=== PATIENT | male | born 1955 | race Hispanic/Latino ===

== ENCOUNTER 2019-08-31 15:10 | Emergency (ER) | payer OTHER ==
--- OUTSIDE RECORDS SUMMARY | 2019-08-31 15:34 | XMS REPORT ---
:1955 Author Organization eClinicalWorks Care Team Providers Name Role Phone Annia Garcia Provider Role Unavailable Allergies, Adverse Reactions, Alerts Substance Reaction Event Type N.K.D.A. Info Not Available Non Drug Allergy Problems Problem Type Condition Code Onset Dates Condition Statu s Problem Memory problem R41.3 Active Problem Therapeutic drug monitoring Z51.81 Active Problem Hypertension, unspecified type I10 Active Assessment Acute bilateral low back pain M54.5 Active without sciatica Problem Forgetfulness R68.89 Active Problem Dietary surveillance and counseling Z71.3 Active Problem Depression screening Z13.31 Active Problem Acute bilateral low back pain M54.5 Active without sciatica Problem Hyperglycemia R73.9 Active Problem Polyarthralgia M25.50 Active Problem Hypercholesterolemia E78.00 Active Problem Vitamin D deficiency E55.9 Active Medications Medication Code Code Instructions Start End Status Dosage System Date Date Atorvastatin ND 42679555200 20 mg Orally Active 1 tablet Calcium Once a day in the evening Aspirin ND 67297052838 81 MG Orally Active 1 table t Once daily (OTC) Gabapentin ND 33119889121 300 MG Orally June Active 1 c apsule Twice a day 2019 as needed for pain Lisinopril ND 66946399145 10 MG Orally Active 1 ta blet Twice a day for high blood pressure [place] 3 [facility] 10866773152 1000 MG Orally Active (500 mg) 1 Once a day capsule Prevagen [facility] 01291759911 10 MG Orally Active as dir ected Once daily (OTC) Vitamin D [facility] [address]84-[address] Orally Once a Active 5 , 000 IU 1 day gelcap Results No Known Results Summary Purpose eClinicalWorks Submission
--- OUTSIDE RECORDS SUMMARY | 2019-08-31 15:35 | XMS REPORT ---
:1955 Author Organization eClinicalWorks Care Team Providers Name Role Phone Annia Garcia Provider Role Unavailable Allergies No Known Allergies Problems Problem Type Condition Code Onset Dates [...] D deficiency E55.9 Active Medications Medication Code System Code Instructions Start End Date Status Dos age Date Gabapentin [facility] 38388636555 300 MG Orally June 22, Active 1 capsule Twice a day 2019 as needed for pain Results No Known Results Summary Purpose eClinicalWorks Submission
--- OUTSIDE RECORDS SUMMARY | 2019-08-31 15:35 | XMS REPORT ---
:1955 Author Organization eClinicalWorks Care Team Providers Name Role Phone Annia Garcia Provider Role Unavailable Allergies, Adverse Reactions, Alerts Substance Reaction Event Type N.K.D.A. Info Not Available Non Drug Allergy Problems Problem Type Condition Code Onset Dates Condition Statu s Problem Therapeutic drug monitoring Z51.81 Active Problem Hyperglycemia R73.9 Active Problem Polyarthralgia M25.50 Active Problem Counseling and coordination of care Z71.89 Active Problem Acute bilateral low back pain M54.5 Active without sciatica Problem Constipation, unspecified K59.00 Ac tive constipation type Problem Hypercholesterolemia E78.00 Active Problem Vitamin D deficiency E55.9 Active Problem Dietary surveillance and counseling Z71.3 Active Problem Depression screening Z13.31 Active Problem Forgetfulness R68.89 Active Problem Memory problem R41.3 Active Assessment Acute bilateral low back pain M54.5 Active without sciatica Problem Hypertension, unspecified type I10 Active Medications Medication Code Code Instructions Start End Status Dosage System Date Date Prevagen [facility] 05548192770 10 MG Orally Active as dir ected Once daily (OTC) Meloxicam ND 93986184412 15 MG Orally August 21September Active 1/2 to 1 Once a day; 2019, tablet as take no other 2020 needed for NSAIDS with pain; take this with food or milk Vitamin D [facility] [address] Orally Once a Active 5 , 000 IU 1 day gelcap [place] 3 [facility] 02797081223 1000 MG Orally Active (500 mg) 1 Once a day capsule Aspirin ND 58703056894 81 MG Orally Active 1 table t Once daily (OTC) Atorvastatin ND 18271054803 20 mg Orally Active 1 tablet Calcium Once a day in the evening Lisinopril ND 28648901641 10 MG Orally Active 1 ta blet Twice a day for high blood pressure Gabapentin ND 55909932652 600 MG Orally June Active 1 c apsule Three times a 2019 as needed day for pain Lactulose ND 01396364918 10 GM/15ML August 22August Active 15 ml- 30ml Orally Once to 2019 12, twice a day prn 2019 Results No Known Results Summary Purpose eClinicalWorks Submission
--- OUTSIDE RECORDS SUMMARY | 2019-08-31 15:35 | XMS REPORT ---
[...] Z71.3 Active Problem Depression screening Z13.31 Active Assessment Counseling and coordination of care Z71.89 Active Assessment Hyperglycemia R73.9 Active Problem Forgetfulness R68.89 Active Assessment Constipation, unspecified K59.00 Ac tive constipation type Problem Memory problem R41.3 Active Assessment Acute bilateral low back pain M54.5 Active without sciatica Problem Hypertension, unspecified type I10 Active Medications Medication Code Code Instructions Start End Status Dosage System Date Date Prevagen [facility] 45397808395 10 MG Orally Active as dir ected Once daily (OTC) Gabapentin ND 24451751094 600 MG Orally June Active 1 c apsule Three times a 2019 as needed day for pain Vitamin D [facility] [address] Orally Once a Active 5 , 000 IU 1 day gelcap Atorvastatin [facility] 47805471835 20 mg Orally Active 1 tablet Calcium Once a day in the evening Aspirin ND 19387499631 81 MG Orally Active 1 table t Once daily (OTC) [place] 3 [facility] 62912427554 1000 MG Orally Active (500 mg) 1 Once a day capsule Meloxicam [facility] 27978614662 15 MG Orally August 21September Active 1/2 to 1 Once a day; 2019, tablet as take no other 2020 needed for NSAIDS with pain; take this with food or milk Lisinopril [facility] 65000666934 10 MG Orally Active 1 ta blet Twice a day for high blood pressure Results Name Result Date Reference Range Unit Abnormali ty Flag HEMOGLOBIN A1C ----A1C 5.9% [id number] GLUCOSE FINGER ----Result 98--RBS [id number] Summary Purpose eClinicalWorks Submission
--- OUTSIDE RECORDS SUMMARY | 2019-08-31 15:35 | XMS REPORT | Continuity of Care Document ---
:[address] [facility] t Address [address] [place] [address] Care Team Providers Name Role Phone Unavailable Unavailable Unavailable Problems Condition Condition Condition Status Onset Resolution Last Treating Co mments Source Name Details Category Date Date Treatment Clinician Date Forgetfuln Forgetfuln Problem Active [facility] Hypertensi Hypertensi Problem Active [facility] on, on, [facility] unspecifie unspecifie Me moria d type d type l [facility] Memory Memory [facility] Active [facility] problem problem [facility] Vitamin D Vitamin D Problem Active [facility] deficiency deficiency Jeni kes - [facility] Hyperglyce Hyperglyce Problem Active [facility] adenike adenike [facility] Polyarthra Polyarthra Problem Active [facility] lgia lgia [facility] Therapeuti Therapeuti Problem Active [facility] c drug c drug [facility] - monitoring monitoring Me moria l [facility] Hyperchole Hyperchole Problem Active [facility] sterolemia sterolemia Jeni [facility] Depression Depression Problem Active [facility] screening screening [facility] Dietary Dietary Problem Active [facility] surveillan surveillan Jeni kes - ce and ce and [facility] counseling [facility] Acute Acute Diagnosis Active [facility] bilateral bilateral Luke [facility] - low back low back Memori a pain pain l without without [facility] sciatica sciatica ent Clinics Counseling Counseling Problem Active [facility] and and [facility] coordinati coordinati Me moria on of care on of care l [facility] ent [facility]ics Constipati Constipati Problem Active [facility] on, on, [facility] - unspecifie unspecifie Me moria d d l constipati constipati Ou tpati on type on type ent Clinics Allergies, Adverse Reactions, Alerts This patient has no known allergies or adverse reactions. Medications Ordered Filled Start Stop Current Ordering Indication Dosage Frequency Signature Comments Components Source Medication Medication Date Date Medication? Clinician (SIG) Name Name Lactulose Lactulose 2019- Yes Annia 15 ml-30ml [facility]12 [facility] 00 :00 l [facility]pat[facility] ent Clinics Meloxicam Meloxicam 2019- Yes Annia 1/[address] [facility] 6- 07-31 [place] tablet as Luke s - 00:00: 00:00 needed for Memori a 00 :00 pain; take l with food Outpati or milk ent Clinics Gabapentin Gabapentin Yes Annia [address] [facility] 4[facility]02 [place] as needed [facility]: for pain [facility] 00 l [facility] ent [facility] Prevagen Prevagen Yes Annia as [facility] directed [facility] ([facility] Vitamin D Vitamin D Yes Annia 5 ,[address] [facility] 1 gelcap [facility] [place] 3 [place] 3 Yes Annia (500 mg) [address] [facility] capsule [facility]ics Aspirin Aspirin Yes Annia [address] [facility] (OTC) [facility] Atorvastati Atorvastati Yes Annia [address] [facility] n Calcium n Calcium [facility] Lisinopril Lisinopril Yes Annia [address] [facility] Mill[facility] for high [facility] - blood [facility] pressure l Outpati ent Clinics Procedures This patient has no known procedures. Encounters Start End Encounter Admission Attending Care Care Encounter Source Date/Time Date/Time Type Type Clinicians Facility Department ID 2019-08-24 2019-08-24 Outpatient Catrachita Quiroz [id number] [facility] 15:45:00 15:45:00 [facility] 2019-08-23 2019-08-23 Outpatient Catrachita Quiroz [id number] 15:34:00 15:34:00 [facility] 2019-08-22 2019-08-22 [facility] [id number] 11:40:00 11:40:00 [facility] Medicine Medicine Outpati ent Clinics 2019-07-14 2019-07-14 [facility] [id number] 10:09:00 10:09:00 [facility] Medicine l Medicine Outpati ent Clinics 2019-06-23 2019-06-23 [facility] [id number] 10:00[facility]00 10:00:00 [facility] Medicine l Medicine Outpati ent Clinics 2019-05-02 2019-05-02 [facility] [id number] [facility] 08:45:00 08:45:00 [facility] Medicine l Medicine Outpati ent Clinics 2019-03-28 2019-03-28 [facility] [id number] [facility] 10:15:00 10:15:00 [facility] Medicine l Medicine Outpati ent Clinics 2019-03-14 2019-03-14 [facility] [id number] 09:40:00 09:40:00 [facility] Medicine l Medicine Outpati ent Clinics 2018-11-15 2018-11-15 [facility] [id number] [facility] 09[facility]40:00 09:40:00 [facility] Medicine Medicine Outpati ent Clinics 2018-06-01 2018-06-01 [facility] [id number] [facility] 09:30:00 09:30:00 [facility] Medicine l Medicine Outpati ent Clinics 2018-03-01 2018-03-01 [facility] [id number] 09:45:00 09:45:00 [facility] Medicine l Medicine Outpati ent Clinics 2017-12-03 2017-12-03 [facility] [id number] 23:20:00 23:20:00 [facility] 2017-12-01 2017-12-01 Outpatient Catrachita Quiroz [id number] 14:15:00 14:15:00 [facility] 2017-09-02 2017-09-02 Outpatient Catrachita Quiroz [id number] 01:11:00 01:11:00 [facility] 2017-08-26 2017-08-26 Outpatient Catrachita Quiroz [id number] 10:30:00 10:30:00 [facility] ent Clinics Results This patient has no known results.
--- OUTSIDE RECORDS SUMMARY | 2019-08-31 15:35 | XMS REPORT ---
:1955 Author Organization eClinicalWorks Care Team Providers Name Role Phone Annia Garcia Provider Role Unavailable Allergies No Known Allergies Problems Problem Type Condition Code Onset Dates Condition Statu s Problem Therapeutic drug monitoring Z51.81 Active Problem Hyperglycemia R73.9 Active Problem Polyarthralgia M25.50 Active Problem Forgetfulness R68.89 Active Problem Memory problem R41.3 Active Problem Hypertension, unspecified type I10 Active Problem Counseling and coordination of care Z71.89 Active Problem Acute bilateral low back pain M54.5 Active without sciatica Problem Constipation, unspecified K59.00 Ac tive constipation type Problem Hypercholesterolemia E78.00 Active Problem Vitamin D deficiency E55.9 Active Problem Dietary surveillance and counseling Z71.3 Active Problem Depression screening Z13.31 Active Medications Medication Code System Code Instructions Start End Date Status Dos age Date Lactulose [facility] 70878087195 10 GM/15ML Orally August 22September 01, Active 15 ml-30ml Once to twice a 20192019 prn Results No Known Results Summary Purpose eClinicalWorks Submission
[2019-08-31 17:01] LABS: Urine Blood TRACE (NEG); Urine Glucose NEGATIVE (NEG); Urine Protein 1+ (NEG); Urine Specific Gravity >1.030 (1.005-1.030)
[2019-08-31 17:18] LABS: Absolute Lymphocytes (CBC) 0.3 K/uL (0.7-4.9); Basophils % 0.5 % (0-1.3); Hematocrit 33.7 % (39.6-49.0); Lymphocytes % 4.6 % (15.3-44.8); MPV 8.5 fL (7.6-11.3); RBC Red Blood Cell Count 3.55 M/uL (4.33-5.43)
--- NOTE | 2019-08-31 17:41 | RAD REPORT ---
EXAM DESCRIPTION: CT - Spine Lumbar Wo Con - 08/31/2019 5:29 pm CLINICAL HISTORY: Radiculopathy. PAIN COMPARISON: No comparisons TECHNIQUE: Axial noncontrast CT imaging of the lumbar spine was performed with coronal and sagittal re-formatted images. All CT scans are performed using dose optimization technique as appropriate and may include automated exposure control or mA/KV adjustment according to patient size. FINDINGS: There is a large soft tissue mass conglomerate seen in the retrocrural region surrounding the abdominal aorta. This mass results in mild bony demineralization of the right lateral aspect of t he T12 vertebral body. No gross canal compromise seen. This large soft tissue mass is confluent with large amount of abnormal soft tissue in the retroperitoneum surrounding the abdominal aorta. This lar ge conglomerate mass density is incompletely included on this examination however measures approximat leland 9 cm transverse dimension and greater than 5 cm in anterior-posterior dimension. An acute lumbar spine fracture is not seen. Vacuum disc degeneration is present at L4-5 and L5-S1. IMPRESSION: Large conglomerate soft tissue mass is seen involving the retrocrural and retroperitonea l regions detailed suspicious for lymphoma. Mild demineralization of the lateral right aspect of the T12 vertebral body is seen without gross tim dence of canal compromise.
[2019-08-31 17:43] LABS: Potassium 4.7 mmol/L (3.5-5.1)
[2019-08-31] MEDS ORDERED: FENTANYL CITR 100 MCG/2 ML ONE ×2 (17:46→20:29)
[2019-08-31 18:17] LABS: Blood Morphology Comment NOT SEEN (NOT SEEN); Platelet Estimate ADEQ; Urine White Blood Cell Casts OK
--- NOTE | 2019-08-31 18:41 | RAD REPORT ---
EXAM DESCRIPTION: CT - Chest Abd Pelvis Wo Con - 08/31/2019 6:25 pm CLINICAL HISTORY: Chest and abdomen pain. elevated calcium with back pain. Concern for malignancy COMPARISON: No comparisons TECHNIQUE: A limited noncontrast study was performed. All CT scans are performed using dose optimization technique as appropriate and may include automated exposure control or mA/KV adjustment according to patient size. FINDINGS: No pulmonary nodule, mass or infiltrate seen. Mild linear atelectasis is seen in the left lung base.No pleural or pericardial effusion.Mild adenopathy is suspected surrounding the descending thoracic aorta posterior to the left mainstem bronchus measuring approximately 29 x 19 mm. Bulky retrocrural adenopathy is present surrounding the abdominal aorta in totality measuring approxi mately 6.5 x 6.6 cm. There is demineralization/destructive changes involving the anterior aspect of t he T10, T11 and right aspect of T12 vertebral bodies. Destructive changes at the level of the T11 aline tebral body appears most extensive extending into the right pedicle and extending into the central ca nal resulting in mild to moderate canal narrowing. Large bulky conglomerate of lymphadenopathy retroperitoneal region of the abdomen measures approximat leland 5.0 x 13.8 cm, surrounds the abdominal aorta and vena cava and extends into the region of the lef t renal hilum and left upper quadrant. There is moderate left-sided hydronephrosis resulting from thi s. No bowel obstruction, free air, free fluid or abscess. Normal appendix. Increased density is seen wi thin the inferior vena cava and common iliac veins on a noncontrast study suggesting either thrombus or slow flow is present. IMPRESSION: Bulky soft tissue conglomerate is seen involving the inferior chest and retroperitoneum as detailed, suspicious for lymphoma. Bony destructive changes involving the lower thoracic vertebral column with [id number] canal co mpromise at T11. Slow flow or thrombus suspected in the inferior vena cava and both common iliac veins. Moderate left renal hydronephrosis resulting from extension of the mass conglomerate into the left re nal hilum and left upper quadrant.
[2019-08-31] MEDS ORDERED: NA CHLORIDE 0.9% 1,000 ML ONE (20:06)
--- NOTE | 2019-08-31 20:19 | EDPHYS ---
Physician Documentation [facility] Name: Benoit Beltran Age: 64 yrs Sex: Male : 1955 Arrival Date: 08/31/2019 Time: 15:16 Bed 5 Private MD: Annia Garcia ED Physician Justin Tucker HPI: 08/30 17:18 This 64 yrs old Male presents to ER via Wheelchair with complaints of Back jr8 Pain. 17:18 The patient presents with pain that is acute. The symptoms are located in the low back. jr8 Onset: The symptoms/episode began/occurred gradually, 3 month(s) ago, and became worse. The pain does not radiate. Associated signs and symptoms: The patient has no apparent associated signs or symptoms. The problem was sustained from unknown cause. Modifying factors: The patient symptoms are alleviated by nothing, the patient symptoms are aggravated by any movement. Severity of symptoms: At their worst the symptoms were moderate, in the emergency department the symptoms are unchanged. The patient has not experienced similar symptoms in the past. The patient has been recently seen by a physician:. Patient stated that he has been seeing PCP for back pain that started about 3 months ago. Has had steroid shot and was given oral medications. Continues to have pain. No imaging has been completed at this time. Came to ED today for worsening of pain. Historical: - Allergies: 15:49 No Known Allergies; tw2 - Home Meds: 15:49 lisinopril 10 mg Oral tab 1 tab once daily [Active]; gabapentin 300 mg oral cap 1 cap 3 tw2 times per day [Active]; lactulose 10 gram/15 mL Oral soln 30 mL once daily [Active]; aspirin 81 mg Oral chew 1 tab once daily [Active]; - PMHx: 15:49 Hypertension; tw2 - PSHx: 15:49 None; tw2 - Immunization history:: Adult Immunizations. - Social history:: Smoking status: Patient/guardian denies using. ROS: 17:23 Eyes: Negative for injury, pain, redness, and discharge, ENT: Negative for injury, jr8 pain, and discharge, Neck: Negative for injury, pain, and swelling, Cardiovascular: Negative for chest pain, palpitations, and edema, Respiratory: Negative for shortness of breath, cough, wheezing, and pleuritic chest pain, Abdomen/GI: Negative for abdominal pain, nausea, vomiting, diarrhea, and constipation, MS/Extremity: Negative for injury and deformity, Skin: Negative for injury, rash, and discoloration, Neuro: Negative for headache, weakness, numbness, tingling, and seizure. 17:23 Back: Positive for decreased range of motion, pain at rest, pain with movement. Exam: 17:23 Eyes: Pupils equal round and reactive to light, extra-ocular motions intact. Lids and jr8 lashes normal. Conjunctiva and sclera are non-icteric and not injected. Cornea within normal limits. Periorbital areas with no swelling, redness, or edema. ENT: Nares patent. No nasal discharge, no septal abnormalities noted. Tympanic membranes are normal and external auditory canals are clear. Oropharynx with no redness, swelling, or masses, exudates, or evidence of obstruction, uvula midline. Mucous membranes moist. Neck: Trachea midline, no thyromegaly or masses palpated, and no cervical lymphadenopathy. Supple, full range of motion without nuchal rigidity, or vertebral point tenderness. No Meningismus. Cardiovascular: Regular rate and rhythm with a normal S1 and S2. No gallops, murmurs, or rubs. Normal PMI, no JVD. No pulse deficits. Respiratory: Lungs have equal breath sounds bilaterally, clear to auscultation and percussion. No rales, rhonchi or wheezes noted. No increased work of breathing, no retractions or nasal flaring. Abdomen/GI: Soft, non-tender, with normal bowel sounds. No distension or tympany. No guarding or rebound. No evidence of tenderness throughout. Skin: Warm, dry with normal turgor. Normal color with no rashes, no lesions, and no evidence of cellulitis. MS/ Extremity: Pulses equal, no cyanosis. Neurovascular intact. Full, normal range of motion. Neuro: Awake and alert, GCS 15, oriented to person, place, time, and situation. Cranial nerves II-XII grossly intact. Motor strength 5/5 in all extremities. Sensory grossly intact. Cerebellar exam normal. Normal gait. 17:23 Back: pain, that is moderate, of the low back area, ROM is painful, normal spinal alignment noted, CVA tenderness, is absent, vertebral tenderness, is not appreciated. Vital Signs: 15:42 BP 108 / 71; Pulse 89; Resp 17; Temp 98.3(TE); Pulse Ox 97% on R/A; Weight 64.86 kg tw2 (R); Height 5 ft. 5 in. (165.10 cm); Pain 10/10; 17:11 BP 138 / 81; Pulse 70; Resp 16; Pulse Ox 100% ; sv 17:46 BP 124 / 78; Pulse 72; Resp 16; Pulse Ox 98% on R/A; sv 18:35 BP 142 / 84; Pulse 72; Resp 18; Pulse Ox 100% ; sv 19:30 BP 106 / 51; Pulse 88; Resp 20; Pulse Ox 98% on R/A; jb4 20:20 BP 149 / 85; Pulse 71; Resp 18; Pulse Ox 100% on R/A; tt3 20:44 Temp 98.4(O); oe 21:00 BP 150 / 78; Pulse 86; Resp 16; Pulse Ox 100% on R/A; jb4 15:42 Body Mass Index 23.80 (64.86 kg, 165.10 cm) tw2 MDM: 16:30 Patient medically screened. 20:16 Data reviewed: vital signs, nurses notes. Counseling: I had a detailed discussion with xiomy the patient and/or guardian regarding: the historical points, exam findings, and any diagnostic results supporting the discharge/admit diagnosis, radiology results, the need to transfer to another facility. ED course: Will need to transfer due to no Urologic services. I discussed the patient with Dr. Christian at [facility] will consult on transfer. I discussed the patient with Dr. Shepherd whom accepted transfer. . 08/30 16:54 Order name: CBC with Diff; Complete Time: 18:21 [facility] 08/30 16:54 Order name: Basic Metabolic Panel; Complete Time: 17:50 [facility] 08/30 16:54 Order name: CT Lumbar Spine Wo Con; Complete Time: 18:21 [facility] 08/30 16:57 Order name: Urine Dipstick--Ancillary (enter results); Complete Time: 17:04 hb 08/30 17:51 Order name: CT Chest Abdomen Pelvis W/O Contrast; Complete Time: 19:16 [facility] 08/30 18:17 Order name: CBC Smear Scan; Complete Time: 18:21 [facility] 08/30 16:54 Order name: IV; Complete Time: 17:09 jr8 08/30 16:55 Order name: Urine Dipstick-Ancillary (obtain specimen); Complete Time: 16:56 jr8 Administered Medications: 17:45 Drug: fentaNYL (PF) 50 mcg {Note: rass1.} Route: IVP; Site: right antecubital; sv 18:47 Follow up: Response: No adverse reaction; RASS: Alert and Calm (0) sv 20:00 Drug: NS 0.9% 1000 ml Route: IV; Rate: 1 bolus; Site: right antecubital; rv 21:00 Follow up: Response: No adverse reaction; IV Status: Completed infusion; IV Intake: jb4 1000ml 20:23 Drug: fentaNYL (PF) 50 mcg {Note: Rass score 0.} Route: IVP; Site: right antecubital; jb4 20:50 Follow up: Response: No adverse reaction; Pain is unchanged, physician notified jb 20:58 Drug: fentaNYL (PF) 50 mcg {Note: Rass score 0.} Route: IVP; Site: right antecubital; 4 21:10 Follow up: Response: No adverse reaction; Pain is unchanged, physician notified jb 21:17 Drug: Dilaudid 0.5 mg {Note: Rass score 0.} Route: IVP; Site: right antecubital; jb4 21:19 Follow up: Response: No adverse reaction [facility] Disposition: 08/31 18:40 Co-signature as Attending Physician, Justin Tucker MD I agree with the assessment and lashay plan of care. Disposition: 08/31/19 20:[address] [facility]. Diagnosis is Acute Kidney Injury. - Reason for transfer: Higher level of care. - Accepting physician is Eulalio. - Condition is Stable. - Problem is new. - Symptoms are unchanged. Signatures: Dispatcher [employer] Marcy Akers RN Justin Hunter MD MD cha Mickail, Joel, PA PA jmm Roszak, Josh, PA PA jr8 Dania Alvarez RN RN tw2 Colby Mckinney RN RN jb4 Anthony Acevedo RN RN rv Corrections: (The following items were deleted from the chart) 08/30 21:23 20:18 08/31/2019 20:[address] [facility]. jb4 Diagnosis is Acute Kidney Injury. Reason for transfer: Higher level of care. Accepting physician is Eulalio. Condition is Stable. Problem is new. Symptoms are unchanged. xiomy
--- NOTE | 2019-08-31 20:19 | ER ---
Nurse's Notes [facility] Name: Benoit Beltran Age: 64 yrs Sex: Male : 1955 Arrival Date: 08/31/2019 Time: 15:16 Bed 5 Private MD: Annia Garcia Diagnosis: Acute Kidney Injury Presentation: 08/30 15:42 Chief complaint: Patient states: i got this pain on my back in my lower back, it tw2 started a couple of months ago, dr. baker has been giving me medication and i been telling her it hasnt been helping and she gave me a different kind and then i got constipated and now my right lower back feels swelling and sometimes i get a pain like a burning sensation no the lower right side and it has been keeping me up at night the pain has been keeping me up, and about a week ago when i stand up after a few steps my hips start hurting and i got to hold myself up. Coronavirus screen: Patient denies a cough. Patient denies shortness of breath or difficulty breathing. Patient denies measured and/or subjective temperature greater than 100.4F prior to today's visit. Patient denies travel on a cruise ship or to a country the [facility] currently lists as an affected area. Patient denies contact with known and/or suspected case of COVID-19. Ebola Screen: Patient denies travel to an Ebola-affected area in the 21 days before illness onset. Initial Sepsis Screen: Does the patient meet any 2 criteria? No. Patient's initial sepsis screen is negative. Does the patient have a suspected source of infection? No. Patient's initial sepsis screen is negative. Risk Assessment: Do you want to hurt yourself or someone else? Patient reports no desire to harm self or others. Onset of symptoms was August 31, 2019. 15:42 Method Of Arrival: Wheelchair tw2 15:42 Acuity: PAYTON 3 hb Triage Assessment: 15:45 General: Appears in no apparent distress. slender, well groomed, Behavior is calm, tw2 cooperative, appropriate for age. Pain: Complains of pain in back. Musculoskeletal: Circulation, motion, and sensation intact. Range of motion: intact in all extremities. Historical: - Allergies: 15:49 No Known Allergies; tw2 - Home Meds: 15:49 lisinopril 10 mg Oral tab 1 tab once daily [Active]; gabapentin 300 mg oral cap 1 cap 3 tw2 times per day [Active]; lactulose 10 gram/15 mL Oral soln 30 mL once daily [Active]; aspirin 81 mg Oral chew 1 tab once daily [Active]; - PMHx: 15:49 Hypertension; tw2 - PSHx: 15:49 None; tw2 - Immunization history:: Adult Immunizations. - Social history:: Smoking status: Patient/guardian denies using. Screenin:44 Abuse screen: Denies threats or abuse. Denies injuries from another. Nutritional sv screening: No deficits noted. Tuberculosis screening: No symptoms or risk factors identified. Fall Risk None identified. Assessment: 16:44 General: Appears in no apparent distress. uncomfortable, slender, well developed, sv Behavior is calm, cooperative, appropriate for age. Pain: Complains of pain in right low back Pain currently is 10 out of 10 on a pain scale. Neuro: Level of Consciousness is awake, alert, obeys commands, Oriented to person, place, time, situation, Moves all extremities. Full function Gait is steady. Respiratory: Airway is patent Respiratory effort is even, unlabored, Respiratory pattern is regular, symmetrical. Derm: Skin is intact, Skin is pink, warm \T\ dry. Musculoskeletal: Range of motion: intact in all extremities. 17:46 Reassessment: Patient appears in no apparent distress at this time. No changes from sv previously documented assessment. Patient and/or family updated on plan of care and expected duration. Pain level reassessed. Patient is alert, oriented x 3, equal unlabored respirations, skin warm/dry/pink. 18:30 Reassessment: Patient appears in no apparent distress at this time. Patient and/or sv family updated on plan of care and expected duration. Pain level reassessed. Patient is alert, oriented x 3, equal unlabored respirations, skin warm/dry/pink. 18:46 Reassessment: Brayan MCQUEEN [phone]. sv 19:05 Reassessment: Patient appears in no apparent distress at this time. Patient and/or jb4 family updated on plan of care and expected duration. Pain level reassessed. Patient is alert, oriented x 3, equal unlabored respirations, skin warm/dry/pink. 19:25 Reassessment: Provider at the bedside discussing plan of care with the patient and .jb4 20:00 Reassessment: Patient appears in no apparent distress at this time. Patient and/or jb4 family updated on plan of care and expected duration. Pain level reassessed. Patient is alert, oriented x 3, equal unlabored respirations, skin warm/dry/pink. 20:20 Reassessment: Pt reports pain has increased to 9/10, provider notified, see [facility] for jb4 orders. 20:46 Reassessment: Attempted to call report, transfer center attempted to transfer call 3 jb4 times with no success. 20:50 Reassessment: Patient appears in no apparent distress at this time. Patient and/or jb4 family updated on plan of care and expected duration. Pain level reassessed. Patient is alert, oriented x 3, equal unlabored respirations, skin warm/dry/pink. Pt reports pain has decreased to 8/10 provider notified, see MAR for orders. 21:10 Reassessment: Pt reports pain is unchanged, and is 10/10, provider notified, see [facility] jb4 for orders. 21:20 Reassessment: Patient appears in no apparent distress at this time. Patient and/or jb4 family updated on plan of care and expected duration. Pain level reassessed. Patient is alert, oriented x 3, equal unlabored respirations, skin warm/dry/pink. Report given to EMS, transferred out of ED via stretcher. 22:40 Reassessment: Report given to SHASTA Rawls. jb4 Vital Signs: 15:42 BP 108 / 71; Pulse 89; Resp 17; Temp 98.3(TE); Pulse Ox 97% on R/A; Weight 64.86 kg tw2 (R); Height 5 ft. 5 in. (165.10 cm); Pain 10/10; 17:11 BP 138 / 81; Pulse 70; Resp 16; Pulse Ox 100% ; sv 17:46 BP 124 / 78; Pulse 72; Resp 16; Pulse Ox 98% on R/A; sv 18:35 BP 142 / 84; Pulse 72; Resp 18; Pulse Ox 100% ; sv 19:30 BP 106 / 51; Pulse 88; Resp 20; Pulse Ox 98% on R/A; jb4 20:20 BP 149 / 85; Pulse 71; Resp 18; Pulse Ox 100% on R/A; tt3 20:44 Temp 98.4(O); oe 21:00 BP 150 / 78; Pulse 86; Resp 16; Pulse Ox 100% on R/A; jb4 15:42 Body Mass Index 23.80 (64.86 kg, 165.10 cm) tw2 ED Course: 15:16 Patient arrived in ED. mr 15:16 Annia Garcia MD is Private Physician. mr 15:45 Triage completed. tw2 15:45 Arm band placed on. tw2 16:30 Otto Cameron PA is PHCP. jr8 16:30 Justin Tucker MD is Attending Physician. jr8 16:31 Marcy Atkins, RN is Primary Nurse. sv 16:44 Patient has correct armband on for positive identification. Bed in low position. Call sv light in reach. Side rails up X2. Adult w/ patient. Door closed. Head of bed elevated. 16:46 Nurse Practitioner and/or Physician Proposal Specialist to see patient. sv 17:08 Warm blanket given. Pulse ox on. NIBP on. mh5 17:08 Initial lab(s) drawn, by de, sent to lab. Urine collected: clean catch specimen, clear. mh5 Inserted saline lock: 22 gauge in right antecubital area, using aseptic technique. Blood collected. 17:09 Basic Metabolic Panel Sent. mh5 17:09 CBC with Diff Sent. mh5 17:[address] Scan. sv 17:30 CT Lumbar Spine Wo Con In Process Unspecified. EDMS 17:46 Awaiting lab results, Awaiting radiology results. sv 17:49 Notified ED physician of Notified Nurse Practitioner and/or Physician Proposal Specialist of a hb critical lab result(s), K+ 12.8. 18:[address] Scan. sv 18:25 CT Chest Abdomen Pelvis W/O Contrast In Process Unspecified. EDMS 18:35 Awaiting radiology results. sv 18:38 PHCP role handed off by Otto Cameron PA [facility] 18:38 Markell Nguyen PA is PHCP. [facility] 19:04 Report given to Sami RN and John RN. sv 19:05 Primary Nurse role handed off by Marcy Atkins, SHASTA sv 19:19 Colby Mckinney, RN is Primary Nurse. jb4 21:22 No provider procedures requiring assistance completed. Patient transferred, IV remains jb4 in place. Administered Medications: 17:45 Drug: fentaNYL (PF) 50 mcg {Note: rass1.} Route: IVP; Site: right antecubital; sv 18:47 Follow up: Response: No adverse reaction; RASS: Alert and Calm (0) sv 20:00 Drug: NS 0.9% 1000 ml Route: IV; Rate: 1 bolus; Site: right antecubital; rv 21:00 Follow up: Response: No adverse reaction; IV Status: Completed infusion; IV Intake: jb4 1000ml 20:23 Drug: fentaNYL (PF) 50 mcg {Note: Rass score 0.} Route: IVP; Site: right antecubital; jb4 20:50 Follow up: Response: No adverse reaction; Pain is unchanged, physician notified jb4 20:58 Drug: fentaNYL (PF) 50 mcg {Note: Rass score 0.} Route: IVP; Site: right antecubital; jb4 21:10 Follow up: Response: No adverse reaction; Pain is unchanged, physician notified jb4 21:17 Drug: Dilaudid 0.5 mg {Note: Rass score 0.} Route: IVP; Site: right antecubital; jb4 21:19 Follow up: Response: No adverse reaction jb4 Intake: 21:00 IV: 1000ml; Total: 1000ml. jb4 Outcome: 20:18 ER care complete, transfer ordered by MD. stauffer 21:22 Transferred by ground EMS [facility]. to [facility], Transfer form jb4 completed. X-rays sent w/ patient. 21:22 Condition: stable 21:22 Discharge instructions given to patient, family, EMS, Instructed on the need for transfer, Demonstrated understanding of instructions. 21:23 Patient left the ED. jb4 Signatures: Dispatcher [employer] EDMS Marcy Atkins RN RN sv Mickail, Joel, PA PA jmm Rivera, Mary mr Otto Cameron PA PA jr8 Brittany Bliss RN RN hb Wise, Tara, RN RN 2 Colby Mckinney RN RN jb Guy Lakhani Maria [facility] Anthony Acevedo RN RN rv Trim, Tyler tt3 Corrections: (The following items were deleted from the chart) 17:46 17:45 fentaNYL (PF) 50 mcg IVP in right antecubital sv sv 17:58 15:42 Acuity: PAYTON 4 tw2 hb 20:18 19:30 BP 106 / 51; Pulse 88bpm; Resp 20bpm; Pulse Ox 98% 2 lpm Nasal Cannula; jb4 jb4
[2019-08-31] MEDS ORDERED: HYDROMORPHONE HCL 0.5 MG/0.5 ML INJ ONE (21:19)
[2019-08-31 21:37] VITALS: O2SAT 100
[2019-08-31 21:38] VITALS: TEMP 98.4
[2019-08-31 21:40] VITALS: BP 150/78
== END 2019-08-31 21:23 | disposition short-term general hospital (02) ==
LOC: ER 15:10
DX: N17.9 Acute kidney failure, unspecified (principal); I10 Essential (primary) hypertension
CPT/HCPCS: 96361; 85025; 80048; 36415; 81003; 72131; 71250; 74176; 96375; 96374; 99285; J3010 ×2; J1170; J7030

== ENCOUNTER 2023-12-08 15:00 | Emergency (ER) | payer OTHER ==
[2023-12-08 16:07] LABS: Absolute Lymphocytes (CBC) 0.3 K/uL (0.7-4.9); Absolute Monocytes 0.2 K/uL (0.1-1.3); Absolute Neutrophil 0.7 K/uL (1.8-8.0); Basophils % 0.7 % (0-1.3); Eosinophils % 2.8 % (0-4.4); Hematocrit 25.7 % (39.6-49.0); Hemoglobin 9.2 g/dL (13.6-17.9); Lymphocytes % 22.9 % (15.3-44.8); MCH 43.4 pg (27.0-35.0); MCHC 35.9 g/dL (32.0-36.0); MCV 120.9 fL (80-100); MPV 8.6 fL (7.6-11.3); Monocytes % 17.7 % (3.3-12.3); Neutrophils % 55.9 % (41.7-73.7); Nucleated Red Blood Cells % 0.4 % (0-0); Platelets 45 thou/uL (152-406); RBC Red Blood Cell Count 2.12 M/uL (4.33-5.43); Red Cell Distribution Width 19.3 % (12.1-15.2)
[2023-12-08] MEDS ORDERED: NA CHLORIDE 0.9% 1,000 ML ONE (16:25)
[2023-12-08 16:26] LABS: Albumin 3.9 g/dL (3.4-5.0); Albumin/Globulin Ratio 1.8 (1.1-1.8); Anion Gap 9.6 mEq/L (5.0-15.0); Bilirubin Direct 0.2 mg/dL (0-0.2); Bilirubin Indirect, Calculated 0.5 mg/dL (0.2-0.8); Bilirubin Total 0.7 mg/dL (0.2-1.0); Globulin 2.2 g/dL (2.3-3.5); Magnesium 2.1 mg/dL (1.6-2.4); Potassium 3.6 mEq/L (3.5-5.1); Protein, Total 6.1 g/dL (6.4-8.2); Troponin High Sensitivity 6.3 pg/mL (<58.9)
--- NOTE | 2023-12-08 16:54 | RAD REPORT ---
EXAM: CT brain without contrast HISTORY: [facility] Bed Name: 13 COMPARISON: None TECHNIQUE: Multiple contiguous axial images were obtained and a CT of the brain without contrast. Sag ittal and coronal reformats were performed. FINDINGS:No evidence of hydrocephalus, intracranial hemorrhage, or extra-axial fluid collection. The brain is normal in morphology. The calvarium is intact. Advanced paranasal sinus opacification is present. IMPRESSION: No evidence of acute intracranial abnormality. EXAM: CT of the cervical spine without contrast HISTORY: [facility] Bed Name: 13 COMPARISON: None TECHNIQUE: Multiple contiguous axial images were obtained in a CT of the cervical spine without contr ast. Sagittal and coronal reformats were performed. FINDINGS: The vertebral bodies demonstrate normal height and alignment. No evidence of acute fracture or subluxation.. Also moderate degenerative changes most pronounced at C5-6 and C6-7, where up to moderate degrees of neural foraminal narrowing are present worse on the left. No prevertebral soft t issue swelling is seen. The posterior facets are well aligned. Normal alignment of the skull base with the cervical spine is seen. The lung apices are unremarkable. IMPRESSION: No evidence of acute osseous abnormality of the cervical spine. . 2 moderate cervical spine degenerat maria changes as above.
--- NOTE | 2023-12-08 17:49 | RAD REPORT ---
EXAMINATION: ONE VIEW CHEST XR CLINICAL INDICATION: Male, 68 years old. [facility] Bed Name: 13 TECHNIQUE: Frontal chest projection is submitted. Examination is limited by patient positioning and t echnique. COMPARISON: CT chest 08/31/2019 FINDINGS: The lungs are well inflated and clear. Lobulated well-circumscribed radiodensities overlying the left lung base, largest measuring 4.3 cm, with air present extracorporeal material, soft tissue calcific density, although the medial smaller density could represent a calcified lung nodule, grossl y benign in appearance. No pneumothorax or sizable effusion. The heart is normal in size. IMPRESSION: No acute intrathoracic abnormalities. Radiodensities projecting over the left lung base as detailed above.
--- NOTE | 2023-12-08 18:01 | EDPHYS ---
Physician Documentation [facility] Name: Benoit Beltran Age: 68 yrs Sex: Male : 1955 Arrival Date: 12/08/2023 Time: 15:00 Bed 13 Private MD: ED Physician Jaciel Lane HPI: 12/07 16:28 This 68 yrs old Male presents to ER via Wheelchair with complaints of Syncope, rt Head Injury With LOC-Adult. 16:28 Patient with history of lymphoma, chronic cough presents to the ED with loss of rt consciousness following a coughing episode that occurred after he drank some water. The patient lost consciousness, apparently falling off of his bed where he hit the bridge of his nose. Denies any significant pain to the area. Unclear how long the patient has been unconscious for but he states that he was somewhat confused, had difficulty getting back up. Patient states that this has resolved, seems to be at baseline. Denies chest pain, shortness of breath. Denies other acute complaints at this time, symptoms are moderate in severity, no other aggravating or elevating factors.. 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 - Infectious Disease History:: Denies. - Social history:: Smoking status: Patient denies any tobacco usage or history of. ROS: 16:28 Constitutional: Negative for fever, chills, and weight loss, Cardiovascular: Negative rt for chest pain, palpitations, and edema, Respiratory: Negative for shortness of breath, cough, wheezing, and pleuritic chest pain, Abdomen/GI: Negative for abdominal pain, nausea, vomiting, diarrhea, and constipation, MS/Extremity: Negative for injury and deformity, Skin: Negative for injury, rash, and discoloration, 16:28 Neuro: Positive for loss of consciousness, weakness, Exam: 16:28 Constitutional: This is a well developed, well nourished patient who is awake, alert, rt and in no acute distress. Chest/axilla: Normal chest wall appearance and motion. Nontender with no deformity. No lesions are appreciated. Cardiovascular: Regular rate and rhythm with a normal S1 and S2. No gallops, murmurs, or rubs. Normal PMI, no JVD. No pulse deficits. Respiratory: Lungs have equal breath sounds bilaterally, clear to auscultation and percussion. No rales, rhonchi or wheezes noted. No increased work of breathing, no retractions or nasal flaring. Abdomen/GI: Soft, non-tender, with normal bowel sounds. No distension or tympany. No guarding or rebound. No evidence of tenderness throughout. Skin: Warm, dry with normal turgor. Normal color with no rashes, no lesions, and no evidence of cellulitis. MS/ Extremity: Pulses equal, no cyanosis. Neurovascular intact. Full, normal range of motion. Neuro: Awake and alert, GCS 15, oriented to person, place, time, and situation. Cranial nerves II-XII grossly intact. Motor strength 5/5 in all extremities. Sensory grossly intact. Cerebellar exam normal. Normal gait. 16:28 Head/face: Abrasion to the bridge of the nose, no laceration, no other signs of trauma. 16:28 ECG was reviewed by the Attending Physician. Vital Signs: 15:09 BP 142 / 92; Pulse 117; Resp 16; Temp 97.9; Pulse Ox 100% ; Weight 68.04 kg; Height 5 iw ft. 3 in. ; Pain 0/10; 16:30 BP 152 / 98; Pulse 103; Resp 18 S; Pulse Ox 100% on R/A; kc6 17:35 BP 122 / 78; Pulse 94; Resp 18 S; Pulse Ox 100% on R/A; kc6 15:09 Body Mass Index 26.57 (68.04 kg, 160.02 cm) iw 15:09 Pain Scale: Adult iw MDM: 15:20 Patient medically screened. rt 18:47 Differential Diagnosis: Syncope, anemia, dysrhythmia, cranial hemorrhage. Data rt reviewed: vital signs, nurses notes, lab test result(s), EKG, radiologic studies. Consideration of Admission/Observation Escalation of care including admission/observation considered. Workup is benign, at baseline for the patient. CT scan of the head is unremarkable, EKG shows no acute findings. I discussed admission for observation with the patient, he states that he wishes to go home, will follow-up as an outpatient. Strict return precautions were discussed with patient. I considered the following discharge prescriptions or medication management in the emergency department Medications were administered in the Emergency Department. See MAR. Independent interpretation of the following test(s) in the Emergency Department CT Scan: My interpretation is No intracranial hemorrhage seen on my interpretation of CT scan images. Care significantly affected by the following chronic conditions: Lymphoma. Counseling: I had a detailed discussion with the patient and/or guardian regarding the historical points, exam findings, and any diagnostic results supporting the discharge/admit diagnosis, lab results, radiology results, the need for outpatient follow up, to return to the emergency department if symptoms worsen or persist or if there are any questions or concerns that arise at home. Response to treatment: the patient's symptoms have markedly improved after treatment. 12/07 15:32 Order name: Basic Metabolic Panel; Complete Time: 16: rt 12/07 15:32 Order name: CBC with Diff rt 12/07 15:32 Order name: LFT's; Complete Time: 16: rt 12/07 15:32 Order name: Magnesium; Complete Time: 16: rt 12/07 15:32 Order name: Troponin HS; Complete Time: 16: rt 12/07 15:32 Order name: BNP; Complete Time: 16: rt 12/07 15:32 Order name: XRAY Chest (1 view); Complete Time: 17:53 rt 12/07 15:32 Order name: CT Head C Spine; Complete Time: 17:53 rt 12/07 15:32 Order name: Cardiac monitoring; Complete Time: 16:06 rt 12/07 15:32 Order name: EKG - Nurse/Tech; Complete Time: 16: rt 12/07 15:32 Order name: IV Saline Lock; Complete Time: 16:12/07 15:32 Order name: Labs collected and sent; Complete Time: 16:12/07 15:32 Order name: O2 Per Protocol; Complete Time: 16:12/07 15:32 Order name: O2 Sat Monitoring; Complete Time: 16: rt EC:28 Rate is 103 beats/min. Rhythm is regular, Sinus tachycardia with No ectopy. QRS [place] is rt Normal. VT interval is normal. QRS interval is normal. QT interval is normal. No Q waves. Administered Medications: 16:30 Drug: NS 0.9% IV 1000 ml IV at 1 bolus Per protocol; 1000 mL bolus Route: IV; Rate: 1 kc6 bolus; Site: right antecubital; 17:36 Follow up: Response: No adverse reaction; IV Status: Completed infusion; IV Intake: kc6 1000ml Disposition Summary: 12/08/23 18:01 Discharge Ordered Notes: Location: Home rt Problem: new rt Symptoms: have improved rt Condition: Stable rt Diagnosis - Syncope rt Followup: rt - With: Private Physician - When: 2 - 3 days - Reason: Discharge Instructions: - Discharge Summary Sheet rt - Syncope rt Forms: - Medication Reconciliation Form rt - Antibiotic Education rt - Prescription Opioid Use rt - Patient Portal Instructions rt - Leadership Thank You Letter rt Signatures: Dispatcher [employer] EDSonal Kumar RN RN iw Geno Kruger RN RN kc6 Jaciel Lane MD MD rt Corrections: (The following items were deleted from the chart) 15:12 15:11 Allergies: Aspirin; iw iw 15:32 15:32 BASIC METABOLIC PANEL+C.LAB.BRZ ordered. EDMS EDMS 15:32 15:32 CBC+H.LAB.BRZ ordered. EDMS EDMS 15:32 15:32 HEPATIC FUNCTION+C.LAB.BRZ ordered. EDMS EDMS 15:32 15:32 MAGNESIUM+C.LAB.BRZ ordered. EDMS EDMS 15:32 15:32 Troponin High Sensitivity+C.LAB.BRZ ordered. EDMS EDMS 15:32 15:32 PROBNP+C.LAB.BRZ ordered. EDMS EDMS 15:32 15:32 Chest Single View+RAD.RAD.BRZ ordered. EDMS EDMS 15:32 15:32 Head C Spine MPR Wo Con+CT.RAD.BRZ ordered. EDMS EDMS
--- NOTE | 2023-12-08 18:01 | ER ---
Nurse's Notes [facility] Name: Benoit Beltran Age: 68 yrs Sex: Male : 1955 Arrival Date: 12/08/2023 Time: 15:00 Bed 13 Private MD: Diagnosis: Syncope Presentation: 12/07 15:09 Chief complaint: Patient's son or daughter states: he has lymphoma, he was eating lunch iw and was coughing and coughing, he blacked out and fell , he was found by her mom on the floor, he does not remember what happened, he was on the floor when he came to , he was down maybe 15-20 minutes , he is on cell therapy and that's why he has a cough, see Dr. Jose Gutiérrez at [facility]. Coronavirus screen: At this time, the client does not indicate any symptoms associated with coronavirus-19. Ebola Screen: No symptoms or risks identified at this time. 15:09 Method Of Arrival: Wheelchair iw 15:10 Initial Sepsis Screen: Does the patient meet any 2 criteria? No. Patient's initial iw sepsis screen is negative. Does the patient have a suspected source of infection? No. Patient's initial sepsis screen is negative. Risk Assessment: Do you want to hurt yourself or someone else? Patient reports no desire to harm self or others. Onset of symptoms was December 08, 2023. 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 - Infectious Disease History:: Denies. - Social history:: Smoking status: Patient denies any tobacco usage or history of. Screenin:31 [facility] ED Fall Risk Assessment (Adult) History of falling in the last 3 months, kc6 including since admission Yes- physiologic fall (2 pts) Confusion or Disorientation No (0 pts) Intoxicated or Sedated No (0 pts) Impaired Gait No (0 pts) Mobility Assist Device Used No (0 pt) Altered Elimination No (0 pt) Score/Fall Risk Level 0 - 2 = Low Risk Oriented to surroundings. Abuse screen: Denies threats or abuse. Denies injuries from another. Nutritional screening: No deficits noted. Tuberculosis screening: No symptoms or risk factors identified. Assessment: 16:31 General: Appears in no apparent distress. comfortable, well groomed, well developed, kc6 Behavior is calm, cooperative, appropriate for age. Pain: Complains of pain in nose. Neuro: Level of Consciousness is awake, alert, obeys commands, Oriented to person, place, time, situation, Appropriate for age Reports a syncopal episode. Cardiovascular: Denies chest pain, shortness of breath, Heart tones S1 S2 present Capillary refill < 3 seconds Rhythm is sinus tachycardia. Respiratory: Reports cough that is persistent Airway is patent Trachea midline Respiratory effort is even, unlabored, Respiratory pattern is regular, symmetrical. GI: No signs and/or symptoms were reported involving the gastrointestinal system. : No signs and/or symptoms were reported regarding the genitourinary system. EENT: No signs and/or symptoms were reported regarding the EENT system. Derm: Skin is healthy with good turgor, Skin is pink, warm \T\ dry. Musculoskeletal: No signs and/or symptoms reported regarding the musculoskeletal system. Circulation, motion, and sensation intact. Capillary refill < 3 seconds, Range of motion: intact in all extremities. Injury Description: Laceration sustained to bridge of nose is jagged, superficial, not bleeding, was sustained 1-2 hours ago. no active bleeding noted at this time. 17:35 Reassessment: Patient appears in no apparent distress at this time. No changes from kc6 previously documented assessment. Patient and/or family updated on plan of care and expected duration. Pain level reassessed. Patient is alert, oriented x 3, equal unlabored respirations, skin warm/dry/pink. Patient states feeling better. Patient states symptoms have improved. 18:36 Reassessment: Patient appears in no apparent distress at this time. No changes from kc6 previously documented assessment. Patient and/or family updated on plan of care and expected duration. Pain level reassessed. Patient is alert, oriented x 3, equal unlabored respirations, skin warm/dry/pink. Vital Signs: 15:09 BP 142 / 92; Pulse 117; Resp 16; Temp 97.9; Pulse Ox 100% ; Weight 68.04 kg; Height 5 iw ft. 3 in. ; Pain 0/10; 16:30 BP 152 / 98; Pulse 103; Resp 18 S; Pulse Ox 100% on R/A; kc6 17:35 BP 122 / 78; Pulse 94; Resp 18 S; Pulse Ox 100% on R/A; kc6 15:09 Body Mass Index 26.57 (68.04 kg, 160.02 cm) iw 15:09 Pain Scale: Adult iw ED Course: 15:03 Patient arrived in ED. im 15:10 Triage completed. iw 15:[address] MD is Attending Physician. rt 15:13 Arm band placed on. iw 15:26 Geno Kruger, RN is Primary Nurse. kc6 16:01 Basic Metabolic Panel Sent. bc6 16:01 CBC with Diff Sent. bc6 16:01 LFT's Sent. bc6 16:01 Magnesium Sent. bc6 16:01 Troponin HS Sent. bc6 16:01 Initial lab(s) drawn, by me, sent to lab. Inserted saline lock: 22 gauge in right bc6 antecubital area, using aseptic technique. Blood collected. Flushed with 10 mL NS. 16:06 EKG done, by ED staff. tm3 16:26 CT Head C Spine In Process Unspecified. EDMS 16:31 Patient has correct armband on for positive identification. Bed in low position. Call kc6 light in reach. Side rails up X 1. Adult w/ patient. Pulse ox on. NIBP on. Door closed. Noise minimized. Lights dimmed. Pillow given. 16:40 XRAY Chest (1 view) In Process Unspecified. EDMS 18:37 No provider procedures requiring assistance completed. IV discontinued, intact, kc6 bleeding controlled, No redness/swelling at site. Pressure dressing applied. Administered Medications: 16:30 Drug: NS 0.9% IV 1000 ml IV at 1 bolus Per protocol; 1000 mL bolus Route: IV; Rate: 1 kc6 bolus; Site: right antecubital; 17:36 Follow up: Response: No adverse reaction; IV Status: Completed infusion; IV Intake: kc6 1000ml Medication: 18:37 VIS not applicable for this client. kc6 Intake: 17:36 IV: 1000ml; Total: 1000ml. kc6 Outcome: 18:01 Discharge ordered by . rt 18:37 Discharged to home ambulatory, with family, with significant other, kc6 18:37 Condition: improved 18:37 Discharge instructions given to patient, family, significant other, Instructed on discharge instructions, follow up and referral plans. Demonstrated understanding of instructions, follow-up care, 18:37 Patient left the ED. kc6 Signatures: Dispatcher [employer] EDMS Jordy Mas tm3 Sonal Valencia, RN Geno Genao RN RN kc6 Jaciel Lane MD MD rt Patsy Heredia 6 Venessa [place] Corrections: (The following items were deleted from the chart) 15:10 15:09 Chief complaint: Patient's son or daughter states: he has lymphoma, he was eating lunch and was coughing and coughing, he blacked out and fell , he was found by her mom on the floor, he does not remember what happened, he was on the floor when he came to 15:11 15:09 Chief complaint: Patient's son or daughter states: he has lymphoma, he was eating iw lunch and was coughing and coughing, he blacked out and fell , he was found by her mom on the floor, he does not remember what happened, he was on the floor when he came to , he was down maybe 15-20 minutes iw 15:12 15:09 BP 142 / 92; Pulse 117bpm; Resp 16bpm; Temp 97.9F; iw iw 15: 15:11 Allergies: Aspirin; iw iw
[2023-12-08 19:24] VITALS: TEMP 97.9; O2SAT 100
[2023-12-08 19:27] VITALS: BP 122/78
[2023-12-08 20:43] LABS: Platelet Estimate DECR; White Blood Cell Scan OK (OK)
[2023-12-08 20:44] LABS: Anisocytosis 1+; Blood Morphology Comment NOTED (NOT SEEN); Poikilocytosis 1+
--- NOTE | 2023-12-10 12:24 | EKG ---
Test Date: 2023-12-08 Test Time: 16:03:14 Visitor Services Associate: ELGIN MEASUREMENT RESULTS: Intervals: Rate: 103 WA: 170 QRSD: 66 QT: 328 QTc: 429 [place]: P: 79 WA: 170 QRS: 66 T: 70 INTERPRETIVE STATEMENTS: Sinus tachycardia Nonspecific ST abnormality Abnormal ECG No previous ECG available for comparison Electronically Signed On 12-10-23 12:18:29 CDT by David Prather
== END 2023-12-08 18:37 | disposition home or self-care (01) ==
LOC: ER 15:00
DX: R55 Syncope and collapse (principal); S00.31XA Abrasion of nose, initial encounter; R53.1 Weakness; I10 Essential (primary) hypertension; Z85.72 Personal history of non-Hodgkin lymphomas
CPT/HCPCS: 85025; 80048; 36415; 83735; 80076; 84484; 83880; 70450; 72125; 71045; J7030; 93005; 96360; 99284